=== PATIENT | female | born 1955 | race Caucasian/White ===

== ENCOUNTER 2016-09-23 12:36 | Outpatient (CLI) ==
--- NOTE | 2016-09-23 13:23 | DI ---
EXAM: CHEST FRONTAL AND LATERAL VIEWS HISTORY: Cough. COMPARISON: None FINDINGS: Normal heart size. There is diffuse, chronic appearing interstitial accentuation. Lungs are hyperinflated and there is relative lucency of the lung zones suggesting emphysema. No acute in filtrates are seen. There is no consolidation, visible pleural fluid or pneumothorax. Bones reveal no acute fracture. Mild scoliosis. IMPRESSION: Probable chronic obstructive pulmonary disease, correlate clinically. No consolidated p neumonia identified.]
== END 2016-09-23 12:37 | disposition home or self-care (01) ==
LOC: RAD 12:36
PROVIDERS: ATTEND Physician Assistant
DX: R05 Cough (principal)